=== PATIENT | male | born 1950 | race Caucasian/White ===

== ENCOUNTER 2016-09-22 12:48 | Observation (INO) | payer MEDICARE, OTHER ==
[~2016-09-22] VITALS: Ht 172.7 cm; Wt 102.5 kg
[2016-09-22 12:50] VITALS: BP 169/80; PULSE 55; RESP 20; TEMP 97.6; O2SAT 95
[2016-09-22] MEDS ORDERED: HYDR12.56 PO (14:13)
[2016-09-22] MEDS ORDERED: CARV6.252 PO (14:13)
[2016-09-22] MEDS ORDERED: CARB200T PO (14:13)
[2016-09-22] MEDS ORDERED: GABA600T PO (14:13)
[2016-09-22] MEDS ORDERED: BACL10TA PO (14:13)
[2016-09-22] MEDS ORDERED: BUTATAB6 PO (14:13)
[2016-09-22] MEDS ORDERED: DICL1GEL7 TOPICAL (14:13)
[2016-09-22] MEDS ORDERED: ISOS30TA3 PO (14:13)
[2016-09-22] MEDS ORDERED: ALFU10TA2 PO (14:13)
[2016-09-22] MEDS ORDERED: NITROGLYCERIN 2% OINT 1 GM PACKET TOP ONE (14:15)
[2016-09-22] MEDS ORDERED: SODIUM CHLORIDE 0.9% FLUSH 10 ML FLUSH IVF PRN (14:15)
--- NOTE | 2016-09-22 14:16 | PD ---
HPI . Chest pain Chief Complaint: Chest Pain Time Seen by Provider: 14:11 Travel History International Travel<30 days: No Contact w/Intl Traveler<30days: No Traveled to known affect area: No History of Present Illness HPI Patient presents with chest pain which has been bothering him intermittently for 4 days. It is associated with shortness of breath. He states that he can develop chest pain and shortness of breath both with exertion or at rest. The episodes tend to last for 3-5 minutes. He reports about 3-4 episodes per day. The episodes are associated with dizziness but no nausea or diaphoresis. Patient reports that he takes aspirin daily. Patient further reports that he was seen at the [place] [facility] for this 4 days ago and was told to come here that day for further evaluation. He states that he had things to do and thought that things just get better so he did not calm. When his symptoms recurred today, he decided to come and be evaluated. [id number]: Chest DURATION: 4 days TIMIN-4 times per day MODIFYING FACTORS: No exacerbating factors noted. Seems to be relieved by rest. ASSOCIATED SYMPTOMS: Shortness of breath and dizziness PFSH Past Medical History Cardiovascular Problems: Yes (CARDIOMYOPATHY, CHEST PAIN, HYPERLIPIDEMIA, HTN) Social History Alcohol Use: No Tobacco Use: No Allergies-Medications (Allergen,Severity, Reaction): Coded Allergies: Penicillin (Verified Allergy, Severe, Itching, 09/22/16) Reported Meds & Prescriptions Reported Meds & Active Scripts Active Reported Vitamin D-3 (Cholecalciferol) 1,000 Unit Tab 1,000 Units PO TID Aspirin EC (Aspirin) 81 Mg Tabdr 81 Mg PO BID Zocor (Simvastatin) 20 Mg Tab 20 Mg PO HS Disalcid (Salsalate) 500 Mg Tab 500 Mg PO TIDPC Omeprazole 20 Mg Cap 20 Mg PO BID PRN Nitroglycerin SL (Nitroglycerin) 0.4 Mg Subl 0.4 Mg SL DIRECTED PRN ONE TABLET UNDER THE TONGUE NEEDED FOR CHEST PAIN, MAY REPEAT EVERY FIVE MINUTES FOR A TOTAL OF 3 DOSES OR CALL 911 IF NO RELIEF Lisinopril 10 Mg Tab 10 Mg PO DAILY Latanoprost Opth Drops (Latanoprost) 0.005% Drops 1 Drop EACH EYE HS Refrigerate until opened. Isosorbide Mononitrate ER (Isosorbide Mononitrate) 30 Mg Leela 30 Mg PO DAILY Hydrochlorothiazide 12.5 Mg Tab 12.5 Mg PO DAILY Gabapentin 600 Mg Tab 600 Mg PO TID Diclofenac Topical 1% Gel 4 Gm TOPICAL QID PRN Carvedilol 6.25 Mg Tab 6.25 Mg PO BID Carbamazepine 200 Mg Tab 200 Mg PO TID Baclofen 10 Mg Tab 10 Mg PO TID PRN Alfuzosin ER 24 HR 10 Mg Tab 10 Mg PO DAILY@1600 Kjbexygwac-Zkpqexssmdzxg-Aqusqpqu 50-325-40 Mg Tab 2 Tab PO BID PRN Do not exceed 6 tablets/day. Review of Systems Except as stated in HPI: all other systems reviewed are Neg General / Constitutional: No: Fever, Chills Cardiovascular: Positive: Chest Pain or Discomfort Respiratory: Positive: Shortness of Breath Gastrointestinal: No: Nausea, Vomiting Neurologic: Positive: Dizziness Physical Exam Narrative GENERAL: Healthy-appearing man in no acute distress. SKIN: Warm and dry. HEAD: Atraumatic. Normocephalic. EYES: Pupils equal and round. ENT: No nasal bleeding or discharge. Mucous membranes pink and moist. NECK: Trachea midline. Neck is supple. CARDIOVASCULAR: Regular rate and rhythm. Heart sounds are normal. RESPIRATORY: No accessory muscle use. Lungs are clear with full air movement throughout. GASTROINTESTINAL: Abdomen soft, non-tender, nondistended. MUSCULOSKELETAL: No obvious deformities. No edema. NEUROLOGICAL: Awake and alert. No obvious cranial nerve deficits. Motor grossly within normal limits. Normal speech. PSYCHIATRIC: Appropriate mood and affect; insight and judgment normal. Data Data Last Documented VS Vital Signs Date Time Temp Pulse Resp B/P Pulse Ox O2 Delivery O2 Flow Rate FiO2 09/22/16 14:30 97 Nasal Cannula 2 09/22/16 13:53 16 09/22/16 12:50 97.6 55 169/80 Orders Electrocardiogram (09/22/16 ) Basic Metabolic Panel (Bmp) (09/22/16 14:11) Ckmb (Isoenzyme) Profile (09/22/16 14:11) Complete Blood Count With Diff (09/22/16 14:11) Magnesium (Mg) (09/22/16 14:11) Prothrombin Time / Inr (Pt) (09/22/16 14:11) Act Partial Throm Time (Ptt) (09/22/16 14:11) Troponin I (09/22/16 14:11) Chest, Single Ap (09/22/16 14:11) Ecg Monitoring (09/22/16 14:11) Bilateral Bp Monitoring (09/22/16 14:11) Iv Access Insert/Monitor (09/22/16 14:11) Oximetry (09/22/16 14:11) Oxygen Administration (09/22/16 14:11) Nitroglycerin 2% Oint (Nitroglycerin 2% (09/22/16 14:15) Sodium Chloride 0.9% Flush (Ns Flush) (09/22/16 14:15) CKMB (09/22/16 14:00) CKMB% (09/22/16 14:00) Labs Laboratory Tests Test 09/22/16 14:00 White Blood Count 6.5 TH/MM3 Red Blood Count 4.52 MIL/MM3 Hemoglobin 14.0 GM/DL Hematocrit 39.9 % Mean Corpuscular Volume 88.4 FL Mean Corpuscular Hemoglobin 31.0 PG Mean Corpuscular Hemoglobin 35.1 % Concent Red Cell Distribution Width 13.1 % Platelet Count 165 TH/MM3 Mean Platelet Volume 8.8 FL Neutrophils (%) (Auto) 71.7 % Lymphocytes (%) (Auto) 14.0 % Monocytes (%) (Auto) 12.0 % Eosinophils (%) (Auto) 1.9 % Basophils (%) (Auto) 0.4 % Neutrophils # (Auto) 4.6 TH/MM3 Lymphocytes # (Auto) 0.9 TH/MM3 Monocytes # (Auto) 0.8 TH/MM3 Eosinophils # (Auto) 0.1 TH/MM3 Basophils # (Auto) 0.0 TH/MM3 CBC Comment DIFF FINAL Differential Comment Prothrombin Time 11.1 SEC Prothromb Time International 1.0 RATIO Ratio Activated Partial 25.9 SEC Thromboplast Time Sodium Level 141 MEQ/L Potassium Level 3.8 MEQ/L Chloride Level 107 MEQ/L Carbon Dioxide Level 28.9 MEQ/L Anion Gap 5 MEQ/L Blood Urea Nitrogen 12 MG/DL Creatinine 0.73 MG/DL Estimat Glomerular Filtration 107 ML/MIN Rate Random Glucose 84 MG/DL Calcium Level 8.7 MG/DL Magnesium Level 2.0 MG/DL Total Creatine Kinase 137 U/L Creatine Kinase MB 2.6 NG/ML Troponin I LESS THAN 0.02 NG/ML MDM Medical Decision Making Medical Screen Exam Complete: Yes Emergency Medical Condition: Yes Interpretation(s) EKG shows a sinus rhythm with no ST segment elevation or depression. This patient has no old EKGs for comparison. Bradycardic at 50. Differential Diagnosis Differential diagnosis of chest pain includes but is not limited to musculoskeletal pain, pulmonary embolism, acute coronary syndrome, pneumonia, pleurisy Narrative Course Patient presents complaining with chest pain which has waxed and waned for 4 days. CBC & BMP Diagram 09/22/16 14:00 Initial cardiac enzymes are negative. Diagnosis Primary Impression: Chest pain Qualified Code: R07.9 - Chest pain, unspecified type Admitting Information Admitting Physician Requests: Observation Condition: Stable Sue Bennett MD Sep 22, 2016 14:16
[2016-09-22] MEDS ORDERED: ZOCO20TA PO (14:19)
[2016-09-22] MEDS ORDERED: ASPI81TA11 PO (14:19)
[2016-09-22] MEDS ORDERED: NITR1SUB3 SL (14:19)
[2016-09-22] MEDS ORDERED: LATA0.002 EACH EYE (14:19)
[2016-09-22] MEDS ORDERED: VITA10003 PO (14:19)
[2016-09-22] MEDS ORDERED: [UNRECOGNIZED DRUG - CODE] PO (14:19)
[2016-09-22] MEDS ORDERED: OMEP20CA2 PO (14:19)
[2016-09-22] MEDS ORDERED: LISI10TA3 PO (14:19)
[2016-09-22 14:30] VITALS: O2SAT 97
[2016-09-22 14:31] LABS: AUTOMATED NEUTROPHIL # 4.6 TH/MM3 (1.8-7.7); BASOPHIL % 0.4 % (0.0-2.0); EOSINOPHIL # 0.1 TH/MM3 (0-0.4); EOSINOPHIL % 1.9 % (0.0-4.0); HEMATOCRIT 39.9 % (39.0-51.0); HEMO FLAGS DIFF FINAL; LYMPHOCYTE # 0.9 TH/MM3 (1.0-4.8); MEAN CELL VOLUME 88.4 FL (80.0-100.0); MEAN CORPUSCULAR HGB CONC 35.1 % (32.0-36.0); NEUT % 71.7 % (16.0-70.0); PLATELET COUNT 165 TH/MM3 (150-450); RED BLOOD COUNT 4.52 MIL/MM3 (4.50-5.90); RED CELL DISTRIBUTION WIDTH 13.1 % (11.6-17.2); WHITE BLOOD COUNT 6.5 TH/MM3 (4.0-11.0)
[2016-09-22 14:38] LABS: APTT (PATIENT) 25.9 SEC (24.3-30.1); PROTHROMBIN TIME - PATIENT 11.1 SEC (9.8-11.6)
[2016-09-22 14:44] LABS: ANION GAP 5 MEQ/L (5-15); BICARBONATE 28.9 MEQ/L (21.0-32.0); BLOOD UREA NITROGEN 12 MG/DL (7-18); CHLORIDE 107 MEQ/L (98-107); GLOMERULAR FILTRATION RATE 107 ML/MIN (>89); POTASSIUM 3.8 MEQ/L (3.5-5.1); SODIUM (NA) 141 MEQ/L (136-145)
[2016-09-22 14:47] LABS: CREATINE KINASE 137 U/L (39-308)
[2016-09-22 14:59] LABS: CKMB 2.6 NG/ML (0.5-3.6)
[2016-09-22 15:21] VITALS: BP 126/80
--- NOTE | 2016-09-22 15:44 | RADRPT ---
EXAM DATE/TIME: 09/22/2016 15:02 [facility] COMPARISON: No previous studies available for comparison. INDICATIONS : Chest pain. MEDICAL HISTORY : None. SURGICAL HISTORY : None. ENCOUNTER: Initial ACUITY: 1 day PAIN SCORE: 0/10 LOCATION: Bilateral chest FINDINGS: A single view of the chest demonstrates the lungs to be symmetrically aerated without evidence of mas s, infiltrate or effusion. The cardiomediastinal contours are unremarkable. Osseous structures are intact. CONCLUSION: 1. Minimal basal atelectasis. No effusion or pneumothorax. Abel Knight MD on September 22, 2016 at 15:41 Board Certified Radiologist. This report was verified electronically.
[2016-09-22 16:30] VITALS: O2SAT 95
[2016-09-22] MEDS ORDERED: ACETAMINOPHEN 500 MG CPLT PO PRN (16:30)
[2016-09-22] MEDS ORDERED: ZOLPIDEM TARTRATE 5 MG TAB PO PRN (16:30)
[2016-09-22] MEDS ORDERED: ALUMINUM/MAGNESIUM/SIMETH 30 ML CUP PO PRN (16:30)
[2016-09-22] MEDS ORDERED: NITROGLYCERIN 0.4 MG SL 25 TABS/BTL SL PRN (16:30)
[2016-09-22] MEDS ORDERED: ONDANSETRON HCL 4 MG/2 ML VIAL IV PRN (16:30)
[2016-09-22] MEDS ORDERED: BACLOFEN 10 MG TAB PO PRN (16:45)
[2016-09-22] MEDS ORDERED: DICLOFENAC TOPICAL PRN (17:30)
[2016-09-22] MEDS ORDERED: PANTOPRAZOLE SOD 20 MG DELAYED RELEASE TAB PO PRN (17:30)
[2016-09-22] MEDS ORDERED: SALSALATE 500 MG PO SCH (18:30)
[2016-09-22 18:52] LABS: CREATINE KINASE 115 U/L (39-308)
[2016-09-22] MEDS: CHOLECALCIFEROL (VIT D3) 1000 UNIT TAB PO SCH (18:54)
[2016-09-22] MEDS: carBAMazepine 200 MG TAB PO SCH (18:54)
[2016-09-22] MEDS: GABAPENTIN 300 MG CAP PO SCH (18:54)
[2016-09-22 19:06] LABS: CKMB 2.2 NG/ML (0.5-3.6)
[2016-09-22 19:12] VITALS: PULSE 53
[2016-09-22 20:00] VITALS: PULSE 56
[2016-09-22] MEDS: NITROGLYCERIN 2% OINT 1 GM PACKET TOPICAL SCH (20:00)
[2016-09-22] MEDS ORDERED: SODIUM CHLORIDE 0.9% FLUSH 10 ML FLUSH IV FLUSH SCH (21:00)
[2016-09-22] MEDS ORDERED: LATANOPROST 0.005% OPHT SOLN 2.5 ML BTL EACH EYE SCH (21:00)
[2016-09-22] MEDS ORDERED: PRAVASTATIN SOD 40 MG TAB PO SCH (21:00)
[2016-09-22 21:01] LABS: CREATINE KINASE 107 U/L (39-308)
[2016-09-22 21:14] LABS: CKMB 1.7 NG/ML (0.5-3.6)
[2016-09-22] MEDS: CARVEDILOL 6.25 MG TAB PO SCH (22:44)
[2016-09-23] VITALS: PULSE 45
[2016-09-23 00:57] VITALS: BP 108/53; PULSE 61; RESP 18; TEMP 98.7; O2SAT 98
[2016-09-23] MEDS: NITROGLYCERIN 2% OINT 1 GM PACKET TOPICAL SCH (02:00)
[2016-09-23 04:00] VITALS: PULSE 53
[2016-09-23 05:01] VITALS: BP 132/59; PULSE 57; RESP 18; TEMP 97.8; O2SAT 98
[2016-09-23 07:50] VITALS: BP 128/88; PULSE 53; RESP 19; TEMP 98.5; O2SAT 93
--- NOTE | 2016-09-23 08:29 | MH ---
cc: CLARITZA EDMONDS MD DATE OF ADMISSION 09/22/2016 DATE OF 1950 CHIEF COMPLAINT Chest pain. HISTORY OF PRESENT ILLNESS This is a 66-year-old male who presents to the emergency room with complaints of chest discomfort. He states that the onset has been a few days. He actually went to the [facility] last Friday for his routine appointment, and he states that they communicated with his sample builder at the [facility] in [place] and they recommended he come to the ER at that time for evaluation, but he stated that he had things to do and could not come at that time. He actually presented today secondary to having two episodes earlier, one awakening him at 04:30 in the morning out of sleep that was more intense, and another one a couple of hours later while cleaning. He describes the discomfort in the midsternal chest and just left of the mid sternum as a pressure associated with dizziness. At times he feels a bit near syncopal. He cannot relate to precipitating factors in that sometimes the symptoms occur while he is just sitting or sleeping. Other times they occur with exertion. At times he feels hot or a bit flushed. There is no associated nausea, vomiting or diaphoresis. He does sometimes get a bit of dyspnea. He has been wearing a Fitbit to check his pulse and has not noticed any variation in his pulse when he gets dizzy or feels near syncopal. He has he states a low pulse from his medication usually in the 50s. He has been following with the [facility] for years. He does not have a local sample builder. He believes that years ago he had a heart catheterization, possibly with a balloon angioplasty he is not positive of that. He does bring records with him from the [facility] which demonstrates a nuclear stress test done 12/18/2015 which was negative. There was an apparent diminished inferior wall perfusion defect which likely represented attenuation artifact given that his wall motion was normal and left ventricular ejection fraction was 70% and no wall thickening. He also had a CTA of the chest 07/17/2016 with impression exam is limited by beam hardening artifact, motion artifact, suboptimal contrast bolus and moderate calcified plaque. Evaluation for stenosis may be inaccurate. The mid to distal portion of RCA is indeterminate given the limitations as described above. Proximal portions of the RCA demonstrate calcified plaque causing up to mild 25-49% narrowing. LAD demonstrates multiple areas of calcified plaque in its proximal portion causing up to moderate 50-69% (closer to 50%), narrowing at its greatest level of narrowing. Proximal to this region there is mild 25-49% narrowing. Distal calcified plaque in the left main artery at the branch point of the LAD and circumflex causes no narrowing. No plaque or stenosis involving the circumflex artery. Normal cardiac indices and morphology. No chamber enlargement or hypertrophy. There is no evidence of hypoperfusion or infarct. There is no pericardial thickening or effusion. EF is 60%. PAST MEDICAL HISTORY Significant for: 1. Hypertension. 2. Hypercholesterolemia. 3. Coronary artery disease mild to moderate. 4. Seizure disorder. 5. BPH. 6. Venous insufficiency. 7. ED. 8. ALLEN. 9. Migraine headache. 10. Insomnia. 11. Vertigo. 12. Mitral valve insufficiency. 13. Tricuspid valve insufficiency. 14. Glaucoma. 15. Chronic obstructive pulmonary disease. 16. Chronic low back pain. 17. Osteoarthritis. 18. Chest pain. 19. Cardiomyopathy. 20. Carpal tunnel syndrome. 21. Gastroesophageal reflux disease. 22. Allergic rhinitis. 23. Past history of tobacco use. PAST SURGICAL HISTORY 1. Hernia repair. 2. Appendectomy. 3. Tonsillectomy. FAMILY HISTORY Father of congestive heart failure. Mother with history of diabetes. Both parents lived into their 80s, late onset heart disease. SOCIAL HISTORY He is with two grown children. He has grandchildren. He quit smoking in 2000, prior to that he was one-pack per day smoker for 20+ years. Drinks alcohol rarely. Denies illicit drug use. States he tries to stay active. PAST CARDIAC TESTING As detailed above. MEDICATIONS 1. Alfuzosin. 2. Fioricet. 3. Lisinopril. 4. Carbamazepine. 5. Gabapentin. 6. Carvedilol. 7. Baclofen. 8. Simvastatin. 9. Imdur. 10. Nitro sublingual. 11. Aspirin. 12. Salsalate. 13. Omeprazole. 14. Diclofenac topical gel. 15. HCTZ. 16. Vitamin D3. 17. His eye drops are latanoprost ophthalmic drops. ALLERGIES PENICILLIN. REVIEW OF SYSTEMS Positive for chest discomfort as described above. Positive for chronic low back pain and osteoarthritic symptoms of his knees as well. Intermittent gastroesophageal reflux disease symptoms. Dizziness. No syncope but near syncope. Some dyspnea, exertional and related to chest discomfort, otherwise remaining system review 12-point is negative. PHYSICAL EXAMINATION VITAL SIGNS: Temperature 97.6, heart rate 55, respiratory rate 20, blood pressure 169/80, O2 saturations 95% on room air. GENERAL: This is a very pleasant 66-year-old , mildly obese male, who is seen initially in the ER, is alert and oriented times three, well-nourished, well-developed. He is in no acute distress when seen in the emergency room. No chest discomfort. Family at the bedside. HEENT: Head is atraumatic, normocephalic. Eyes, sclerae are clear, nonicteric. EOMI. NECK: Supple. Trachea is midline. No JVD or carotid bruits. CARDIOVASCULAR: S1-S2 and regular rhythm, bradycardic rate in the 50s. No S3-S4, rub or gallop or significant murmur. LUNGS: Clear to auscultation bilaterally. No wheezes, rales or rhonchi. GASTROINTESTINAL: Abdomen is softly obese, nontender. MUSCULOSKELETAL: He has a mild amount of left mid chest wall tenderness but on palpation of the chest wall this does not reproduce his discomfort as described. Pulses are 2+ throughout. No femoral bruits. Lower extremities, trace edema at the ankles and skin appearance of discoloration of venous insufficiency lower anterior legs, mid tibial to ankles. SKIN: Otherwise skin is cool and dry. NEUROLOGIC: Cranial nerves II through XII grossly intact. Motor and sensory is grossly normal and moves all extremities well. Answers all questions appropriate. His memory appears intact. Fairly good historian. PSYCHIATRIC: Very pleasant, friendly, cooperative, non anxious-appearing, normal mood, affect, judgment. LABORATORY DATA CBC essentially unremarkable. Coag profile unremarkable. Basic chemistry unremarkable. First set of cardiac enzymes negative. IMAGING STUDIES Chest film showing minimal basal atelectasis. No effusion or pneumothorax. EKG done x1 showing sinus bradycardia, no ST-T changes to suggest ischemia. ASSESSMENT/PLAN Chest pain in a patient with coronary artery disease as detailed above. Follows with sample builder at the [facility] in [place]. Seen and evaluated by Dr. Claritza Edmonds through the chest pain center. Records from the [facility] were reviewed. No cardiac catheterization report available or detailed in notes. The patient states years ago. CTA and nuclear stress test as discussed above. Continue to rule out with observation in the chest pain center on telemetry. Plan is for repeat Lexiscan in the a.m. to evaluate for any ischemia or changes from his past nuclear scan in November of 2015 which was normal at that time. He has documented coronary plaquing as detailed in the CT of the coronary arteries. Continue nitro paste through the evening and discontinue tomorrow a.m. Follow up with physician's casino assistant manager and sample builder tomorrow. Did discuss recommendations for a local sample builder to assist with following. He relates his insurance will enable him to do so. Medication reconciliation form has been reviewed and medications resumed as appropriate as prior to admission. Further plan per team and imaging tomorrow. DICTATED BY: COLIN Gilmore MD LETY Arias/CARMENCITA /4:56 PM /8:30 AM
[2016-09-23] MEDS ORDERED: HYDROCHLOROTHIAZIDE 12.5 MG CAP PO SCH (09:00)
[2016-09-23] MEDS ORDERED: ASPIRIN 325 MG TAB PO SCH (09:00)
[2016-09-23] MEDS ORDERED: LISINOPRIL 10 MG TAB PO SCH (09:00)
[2016-09-23] MEDS ORDERED: REGADENOSON INJ 0.4 MG/5 ML SYR ONE (09:13)
--- NOTE | 2016-09-23 10:35 | RADRPT ---
EXAM DATE/TIME: 09/23/2016 08:52 [facility] COMPARISON: No previous studies available for comparison. INDICATIONS : Substernal chest pain with dyspnea and dizziness for 4 days. Angina. DOSE: 35 mCi Tc99m Myoview at stress. 11 mCi Tc99m Myoview at rest. 0.4 mg Lexiscan STRESS SYMPTOMS: Shortness of breath. EJECTION FRACTION: 62% MEDICAL HISTORY : Hypercholesterolemia. Hypertension. SURGICAL HISTORY : Cardiac catherization. ENCOUNTER: Initial ACUITY: 4 - 6 days PAIN SCALE: 6/10 LOCATION: Substernal chest TECHNIQUE: The patient underwent pharmacologic stress with infusion of prescribed dose. Continuous ECG tracing was monitored during stress. Gated SPECT imaging was performed after stress and conventional SPECT i maging was performed at rest. The examination was performed on a SPECT/CT scanner, both attenuation and non-corrected datasets were reviewed. FINDINGS: The best perfused myocardium is the anterior wall. There is minimal redistribution inferior wall par tially vascular bite activity. This is of borderline significance. Ejection fraction is 62% with so me hypokinesis inferior wall. CONCLUSION: Possible mild stress-induced ischemia inferior wall partially treated by been activity. There is min imal wall motion and mildly present. RISK CATEGORY: Low (<1% Annual Mortality Rate) Davide Bear MD FACR on September 23, 2016 at 10:31 Board Certified Radiologist. This report was verified electronically.
--- NOTE | 2016-09-23 11:09 | HHI.DCPOC ---
Discharge Care Plan Diagnosis: (1) Chest pain (2) Hypertension (3) Hyperlipidemia Goals to Promote Your Health * To prevent worsening of your condition and complications * To maintain your health at the optimal level Directions to Meet Your Goals Take your medications as prescribed Follow your dietary instruction Follow activity as directed Keep your appointments as scheduled Take your immunizations and boosters as scheduled If your symptoms worsen call your PCP, if no PCP go to Urgent Care Center or Emergency Room Smoking is Dangerous to Your Health. Avoid second hand smoke Call the 24-hour hour crisis hotline for domestic abuse at Yazan Villasenor Sep 23, 2016 11:09
[2016-09-23] MEDS: CARVEDILOL 6.25 MG TAB PO SCH (12:29)
[2016-09-23] MEDS: carBAMazepine 200 MG TAB PO SCH (12:29)
[2016-09-23] MEDS: GABAPENTIN 300 MG CAP PO SCH (12:29)
[2016-09-23] MEDS: CHOLECALCIFEROL (VIT D3) 1000 UNIT TAB PO SCH (12:30)
--- NOTE | 2016-09-23 13:24 | EKG ---
Date Performed: 09/22/2016 Time Performed: 13:04:05 PTAGE: 66 years EKG: SINUS BRADYCARDIA BORDERLINE ECG NO PREVIOUS TRACING DOCTOR: Shukri Rivera Interpretating Date/Time 09/23/2016 13:21:47
--- NOTE | 2016-09-23 13:25 | EKG ---
Date Performed: 09/22/2016 Time Performed: 20:28:44 PTAGE: 66 years EKG: SINUS BRADYCARDIA BORDERLINE ECG PREVIOUS TRACING : 09/22/2016 13.04 Since previous tracing, no significant change noted DOCTOR: Shukri Rivera Interpretating Date/Time 09/23/2016 13:22:21
--- NOTE | 2016-09-23 13:25 | EKG ---
Date Performed: 09/22/2016 Time Performed: 17:10:24 PTAGE: 66 years EKG: SINUS BRADYCARDIA WITH SINUS ARRHYTHMIA BORDERLINE ECG PREVIOUS TRACING : 09/22/2016 13.04 Since previous tracing, no significant change noted DOCTOR: Shukri Rivera Interpretating Date/Time 09/23/2016 13:22:10
--- NOTE | 2016-09-23 13:30 | TR ---
Date Performed: 09/23/2016 Time Performed: 09:22:24 DOCTOR: Shukri Rivera DRUG LIST: CLINICAL HISTORY: REASON FOR TEST: Angina REASON FOR ENDING: OBSERVATION: CONCLUSION: ST depression present at peak exercise consistent with ischemia. No chest pain prese nt nuclear imaging pending COMMENTS:
[2016-09-23 13:33] VITALS: PULSE 46
[2016-09-23] MEDS ORDERED: TAMSULOSIN HCL 0.4 MG CAP PO SCH (16:00)
== END 2016-09-23 13:23 | disposition home or self-care (01) ==
LOC: NEPA 12:48 → NEDA 15:20 → NEPHCDU 18:25
DX: R07.9 Chest pain, unspecified (principal); E78.5 Hyperlipidemia, unspecified; I10 Essential (primary) hypertension; I42.9 Cardiomyopathy, unspecified; E78.00 Pure hypercholesterolemia, unspecified; I25.10 Atherosclerotic heart disease of native coronary artery without angina pectoris; G40.909 Epilepsy, unspecified, not intractable, without status epilepticus; N40.0 Benign prostatic hyperplasia without lower urinary tract symptoms; G47.33 Obstructive sleep apnea (adult) (pediatric); H40.9 Unspecified glaucoma; J44.9 Chronic obstructive pulmonary disease, unspecified; M19.90 Unspecified osteoarthritis, unspecified site; M54.5 Low back pain; G89.29 Other chronic pain; K21.9 Gastro-esophageal reflux disease without esophagitis; I08.1 Rheumatic disorders of both mitral and tricuspid valves; G43.909 Migraine, unspecified, not intractable, without status migrainosus; Z87.891 Personal history of nicotine dependence; Z79.82 Long term (current) use of aspirin; Z88.0 Allergy status to penicillin
CPT/HCPCS: 71010; 78452; 80048; 82550; 82552; 83735; 84484; 85025; 85610; 85730; 93005; 93017; 99285; A9502; G0378; J2785